=== PATIENT | female | born 1935 | race Caucasian/White ===

== ENCOUNTER 2016-12-11 16:21 | Inpatient (IN) | payer OTHER ==
[~2016-12-11] VITALS: Ht 167.6 cm; Wt 85.5 kg
[~2016-12-11 16:21] MED LIST: ASPIR 8181 M1 PO; ATORVASTATIN CA80 MG PO; BACTRIM,SEPT1 TABLET PO; BENADRYL25 MG PO; CLOPIDOGREL75 MG PO; COUMADIN2 MG PO; COUMADIN5 MG PO; CRESTOR10 MG PO; CRESTOR20 MG PO; EXTRA STRENGTH500 M1 PO; FUROSEMIDE20 MG PO; HUMULIN N100 UNIT/2 SC; JANTOVEN2 MG PO; LANTUS 3 M100 UNITS1 SC; LISINOPRIL2.5 MG PO; LOPRESSOR25 MG PO; LUMIGAN 0.50 DROP/22 BOTH EYES; PEPCID20 MG PO; PREDNISONE50 MG PO; Pravachol PO; REGULAR INSULIN SC; VALTREX1000 MG PO; WARFARIN SODIU2.5 MG PO; XARELTO1 EACH PO
[2016-12-11 17:12] LABS: HEMATOCRIT 35.1 % (36.0-46.0); MCH 25.9 PG (29.0-34.0); MCHC 31.6 G/DL (30.0-36.0); MCV 81.8 FL (83-99); MEAN PLAT.VOLUME 11.1 uM^3 (9.5-12.4); PLATELET COUNT 207 K/uL (156-360); RBC DIS.WIDTH-CV 14.5 % (11.8-14.6); RED BLOOD COUNT 4.29 M/uL (3.80-5.20); WHITE BLOOD COUNT 15.9 K/uL (4.1-10.2)
[2016-12-11 17:24] LABS: CHLORIDE 98 mEq/L (99-109); POTASSIUM 3.8 mEq/L (3.7-5.4); SODIUM 131 mEq/L (136-147)
[2016-12-11 17:27] LABS: ANION GAP 12 MEQ/L (2-14); GLUCOSE 363 mg/dL (70-99)
[2016-12-11 17:30] LABS: GFR ESTIMATE (CALCULATED) 38 mL/min/
[2016-12-11 17:31] LABS: UREA NITROGEN (BUN) 20 mg/dL (9-23)
[2016-12-11 17:34] LABS: TROP-I INTERPRETATION NEGATIVE; TROPONIN-I < 0.01 ng/mL (0.0-0.30)
[2016-12-11 17:43] LABS: INFLUENZA A VIRAL ANTIGEN NEGATIVE; INFLUENZA B VIRAL ANTIGEN NEGATIVE
[2016-12-11 17:55] LABS: PTT 62.3 (25-32)
[2016-12-11 17:56] LABS: INTER. NORMALIZED RATIO 4.2; PROTHROMBIN TIME 44.3 (9.2-11.2)
[2016-12-11 18:25] LABS: BASOPHIL COUNT 0.1 K/uL (0-0.1); EOSINOPHIL (%) 0.1 % (0-5); IMMATURE GRANULOCYTE (%) 0.4 % (0.0-0.7); IMMATURE GRANULOCYTE COUNT 0.1 K/uL; INSTRUMENT ABS NEUTROPHIL CT 13.1 K/uL; MONOCYTE COUNT 1.8 K/uL (0-0.8); NEUTROPHIL (%) 82.1 % (45-76); NEUTROPHIL COUNT 13.1 K/uL (1.8-6.4)
[2016-12-11] MEDS ORDERED: COUMADIN4 MG PO (19:53)
[2016-12-11] MEDS ORDERED: NOVOLIN,HU100 UNITS1 SC (19:54)
[2016-12-11] MEDS ORDERED: VITAMIN D31000 UNIT PO (19:54)
[2016-12-11] MEDS ORDERED: TRUSOPT5 ML BOTH EYES (19:54)
[2016-12-11 22:01] LABS: MAGNESIUM 1.9 mg/dL (1.3-2.7)
[2016-12-11 23:00] VITALS: BP 151/70
[2016-12-12] VITALS (12 sets, daily range): BP systolic 96–153; BP diastolic 52–80
[2016-12-12 07:40] LABS: HEMATOCRIT 31.5 % (36.0-46.0); MCH 25.4 PG (29.0-34.0); MCHC 30.5 G/DL (30.0-36.0); MCV 83.3 FL (83-99); MEAN PLAT.VOLUME 11.5 uM^3 (9.5-12.4); PLATELET COUNT 182 K/uL (156-360); RBC DIS.WIDTH-CV 14.8 % (11.8-14.6); RBC DIS.WIDTH-SD 45.4 % (39-53); RED BLOOD COUNT 3.78 M/uL (3.80-5.20)
[2016-12-12 07:53] LABS: POINT-OF-CARE METER ID UU13113781
[2016-12-12 08:22] LABS: ANION GAP 9 MEQ/L (2-14); CHLORIDE 100 MEQ/L (99-109); GFR ESTIMATE (CALCULATED) 51 mL/min/; GLUCOSE 376 mg/dL (70-99); POTASSIUM 3.8 MEQ/L (3.7-5.4); SAMPLE HEMOLYSIS CHECK 0; SAMPLE ICTERIC CHECK 0; SAMPLE LIPEMIA CHECK 0; SODIUM 132 MEQ/L (136-147); UREA NITROGEN (BUN) 18 mg/dL (9-23)
[2016-12-12 08:32] LABS: PROTHROMBIN TIME 52.5 (9.2-11.2)
[2016-12-12 08:47] LABS: INTER. NORMALIZED RATIO 4.9
[2016-12-12 08:50] LABS: ABS NEUTROPHIL COUNT 10.5; ANISOCYTOSIS 1+; ATYPICAL LYMPHOCYTE 0.9 %; BAND NEUTROPHILS 2.6 % (0-8.0); EOSINOPHIL ABS CT 0.1; EOSINOPHILS 0.9 % (0-5.0); INSTRUMENT ABS NEUTROPHIL CT 10.3 K/uL; LYMPHOCYTES 9.7 % (15.0-45.0); MICROCYTOSIS 1+; PLAT.SUFFICIENCY ADEQUATE; SEG.NEUTROPHILS 77.9 % (46.0-76.0); SMUDGE CELLS 3.5
[2016-12-12 09:59] LABS: TROP-I INTERPRETATION NEGATIVE; TROPONIN-I 0.04 ng/mL (0.0-0.30)
[2016-12-12 11:27] LABS: POINT-OF-CARE METER ID UU13113781
[2016-12-12 16:26] LABS: POINT-OF-CARE METER ID UU13113781
[2016-12-12 20:40] LABS: POINT-OF-CARE METER ID UU13113781
[2016-12-12 23:58] LABS: POINT-OF-CARE METER ID UU13113781
[2016-12-13] VITALS (7 sets, daily range): BP systolic 120–162; BP diastolic 59–87
[2016-12-13 07:37] LABS: INTER. NORMALIZED RATIO 3.9; PROTHROMBIN TIME 41.6 (9.2-11.2)
[2016-12-13 07:43] LABS: HEMATOCRIT 32.4 % (36.0-46.0); MCH 25.3 PG (29.0-34.0); MCHC 30.9 G/DL (30.0-36.0); MEAN PLAT.VOLUME 11.2 uM^3 (9.5-12.4); PLATELET COUNT 190 K/uL (156-360); RBC DIS.WIDTH-CV 14.7 % (11.8-14.6); RBC DIS.WIDTH-SD 43.9 % (39-53); RED BLOOD COUNT 3.95 M/uL (3.80-5.20); WHITE BLOOD COUNT 15.5 K/uL (4.1-10.2)
[2016-12-13 07:57] LABS: ANION GAP 7 MEQ/L (2-14); CHLORIDE 104 MEQ/L (99-109); GFR ESTIMATE (CALCULATED) 51 mL/min/; GLUCOSE 151 mg/dL (70-99); POTASSIUM 3.6 MEQ/L (3.7-5.4); SAMPLE HEMOLYSIS CHECK 1; SAMPLE ICTERIC CHECK 0; SAMPLE LIPEMIA CHECK 0; SODIUM 135 MEQ/L (136-147); UREA NITROGEN (BUN) 15 mg/dL (9-23)
[2016-12-13 08:03] LABS: POINT-OF-CARE METER ID UU13113781
[2016-12-13 09:49] LABS: EOSINOPHIL ABS CT 0.3; EOSINOPHILS 1.8 % (0-5.0); INSTRUMENT ABS NEUTROPHIL CT 12.2 K/uL; LYMPHOCYTES 6.3 % (15.0-45.0); SEG.NEUTROPHILS 83.8 % (46.0-76.0); SMUDGE CELLS 1.8
[2016-12-13 10:59] LABS: POINT-OF-CARE METER ID UU13113781
[2016-12-13 21:46] LABS: POINT-OF-CARE METER ID UU13113698
[2016-12-14 00:20] VITALS: BP 167/87
[2016-12-14 03:50] VITALS: BP 135/63
[2016-12-14 05:56] LABS: EOSINOPHIL (%) 1.5 % (0-5); EOSINOPHIL COUNT 0.2 K/uL (0-0.3); HEMATOCRIT 30.9 % (36.0-46.0); IMMATURE GRANULOCYTE COUNT 0.3 K/uL; INSTRUMENT ABS NEUTROPHIL CT 9.6 K/uL; LYMPHOCYTE COUNT 1.5 K/uL (1.0-2.8); MCH 25.4 PG (29.0-34.0); MCHC 31.1 G/DL (30.0-36.0); MCV 81.7 FL (83-99); MEAN PLAT.VOLUME 11.3 uM^3 (9.5-12.4); MONOCYTE (%) 10.4 % (3-12); MONOCYTE COUNT 1.4 K/uL (0-0.8); NEUTROPHIL (%) 74.4 % (45-76); NEUTROPHIL COUNT 9.6 K/uL (1.8-6.4); PLATELET COUNT 205 K/uL (156-360); RBC DIS.WIDTH-CV 14.7 % (11.8-14.6); RBC DIS.WIDTH-SD 43.6 % (39-53); RED BLOOD COUNT 3.78 M/uL (3.80-5.20); WHITE BLOOD COUNT 12.9 K/uL (4.1-10.2)
[2016-12-14 06:45] LABS: ANION GAP 10 MEQ/L (2-14); CHLORIDE 105 MEQ/L (99-109); GFR ESTIMATE (CALCULATED) 56 mL/min/; INTER. NORMALIZED RATIO 2.7; POTASSIUM 3.4 MEQ/L (3.7-5.4); PROTHROMBIN TIME 28.3 (9.2-11.2); SAMPLE HEMOLYSIS CHECK 0; SAMPLE ICTERIC CHECK 0; SAMPLE LIPEMIA CHECK 0; SODIUM 141 MEQ/L (136-147); UREA NITROGEN (BUN) 13 mg/dL (9-23)
[2016-12-14 06:52] LABS: GLUCOSE 100 mg/dL (70-99)
[2016-12-14 07:38] VITALS: BP 101/66
[2016-12-14 07:55] LABS: POINT-OF-CARE METER ID UU13113781
[2016-12-14] MEDS ORDERED: AZITHROMYCIN500 M1 PO (10:17)
[2016-12-14] MEDS ORDERED: CEFTIN500 MG PO (10:17)
[2016-12-14] MEDS ORDERED: COUMADIN3 MG PO (10:17)
[2016-12-14] MEDS ORDERED: ASPIR-LOW81 MG PO (10:17)
[2016-12-14 11:29] VITALS: BP 132/74
== END 2016-12-14 14:27 | disposition home health service (06) | DRG 871 ==
LOC: EME 16:21 → EDOF 20:13 → 4EAST 20:13 → 4SOUTH 20:13 → 4EAST 23:05 → 4SOUTH 12-13 16:59 → 4EAST 12-14 00:43
PROVIDERS: Emergency Medicine; Family Medicine; Hospitalist; Internal Medicine; Internal Medicine Cardiovascular Disease; Physician Assistant Medical
DX: A41.9 Sepsis, unspecified organism (principal); J18.1 Lobar pneumonia, unspecified organism; N17.9 Acute kidney failure, unspecified; E11.65 Type 2 diabetes mellitus with hyperglycemia; E87.6 Hypokalemia; I25.10 Atherosclerotic heart disease of native coronary artery without angina pectoris; I10 Essential (primary) hypertension; I48.0 Paroxysmal atrial fibrillation; L40.50 Arthropathic psoriasis, unspecified; I25.2 Old myocardial infarction; K21.9 Gastro-esophageal reflux disease without esophagitis; E55.9 Vitamin D deficiency, unspecified; E87.1 Hypo-osmolality and hyponatremia; R53.1 Weakness; E66.9 Obesity, unspecified; Z68.31 Body mass index [BMI] 31.0-31.9, adult; D68.32 Hemorrhagic disorder due to extrinsic circulating anticoagulants; T45.515A Adverse effect of anticoagulants, initial encounter
CPT/HCPCS: 36415; 71010; 71020; 80048; 80053; 80061; 81003; 82948; 83036; 83605; 83735; 84484; 85025; 85610; 85730; 87040; 87070; 87205; 87502; 93005; 94640; 94640 76; 94760; 94799; 99202; 99281; 99285; J0456; J0696; J1160; J1815; J3475; J7030; J7050; J7120